=== PATIENT | female | born 1950 | race Caucasian/White ===

== ENCOUNTER 2017-03-22 17:53 | Inpatient (IN) ==
[2017-03-22] MEDS ORDERED: *HR* Morphine 2 MG/ML SYRINGE IVP ONE (18:05)
[2017-03-22] MEDS ORDERED: Ondansetron 4 MG/2 ML VIAL IVP ONE (18:05)
[2017-03-22] MEDS ORDERED: Nitroglycerin 1,000 MCG/10 ML VIAL IV ONE (18:08)
[2017-03-22] MEDS ORDERED: *HR* FentaNYL (PF) 100 MCG/2 ML VIAL ONE (18:08)
[2017-03-22] MEDS ORDERED: *HR* Midazolam HCl 2 MG/2 ML VIAL ONE (18:08)
[2017-03-22 18:10] LABS: Basophils # 0.1 K/mcL (0.0-0.2); Basophils % 0.6 %; Eosinophils # 0.3 K/mcL (0.0-0.6); Eosinophils % 2.8 %; Hematocrit 44.7 % (35.3-44.9); Hemoglobin 14.6 g/dL (11.5-15.4); Immature Granulocytes % 0.4 % (0-4); Lymphocytes # 3.7 K/mcL (0.6-4.6); Lymphocytes % 32.2 %; Mean Corpuscular HGB Conc 32.7 g/dL (31.6-35.5); Mean Platelet Volume 10.8 fL (9.4-12.4); Monocytes # 0.6 K/mcL (0.0-1.3); Monocytes % 5.5 %; Neutrophils # 6.8 K/mcL (1.6-8.9); Platelet Count 210 K/mcL (140-400); Red Blood Count 4.86 M/mcL (3.82-4.97); Red Cell Distribution Width 14.6 % (11.5-14.5); Segmented Neutrophils % 58.5 %
[2017-03-22 18:12] LABS: Prothrombin Time 10.8 Seconds (9.4-12.1)
[2017-03-22 18:14] LABS: Activated Partial Thrombo Time 29.2 Seconds (26.0-36.0)
[2017-03-22 18:20] LABS: BUN/Creatinine Ratio 17 (6-26); Blood Urea Nitrogen 15 mg/dL (7-20); Calcium 9.2 mg/dL (8.6-10.8); Carbon Dioxide 21 mEq/L (19-29); Chloride 103 mEq/L (98-109); Glucose 110 mg/dL (70-99); Magnesium 1.6 mg/dL (1.6-2.6); Osmolality,Calculated 281 (280-300); Potassium 3.8 mEq/L (3.5-4.5); Sodium 135 mEq/L (136-145); eGFR For African Americans > 60 (> 60); eGFR For Non-African Americans > 60 (> 60)
--- NOTE | 2017-03-22 18:23 | Emergency Department Note ---
Disposition Clinical Impression: STEMI (ST elevation myocardial infarction) Qualifiers: Involved coronary artery: unspecified coronary artery Qualified Code(s): I21.3 - ST elevation (STEMI) myocardial infarction of unspecified site Disposition: Admitted As Inpatient Condition: Critical Time of Disposition: 18:34 General Adult HPI - General Chief complaint: ED Chest Pain Stated complaint: STEMI Time Seen by Provider: 03/22/17 17:55 Source: patient, EMS Limitations: no limitations Nursing Notes Reviewed: Yes Vital Signs Reviewed: Yes - History of Present Illness HPI Narrative: Patient is a 58-year-old female with a past medical history of COPD, [place], CABG with 3 stent placement transferred to ED emergency Department by squad for inferior [place] seen by EKG he is squad. In route the Tapper Operator was activated and was consult as an EKG was faxed to him at that time. Upon patient' s arrival she did appear to be in moderate distress. Patient states that her chest pain started yesterday however she has been having back pain for the past 3 days. She describes the chest pain as a pressure-like pain associated with diaphoresis, non-exertional, positive shortness of breath, and no nausea. Patient's Pain is 10/10. Pain Scale: 10 - Related Data Home Medications Medication Instructions Recorded Confirmed Albuterol Neb [AccuNeb] 1.25 mg IH TID 05/07/15 05/07/15 Atorvastatin [Lipitor] 40 mg PO DAILY 05/07/15 05/07/15 Metoprolol 05/07/15 Previous Rx's Medication Instructions Recorded Albuterol Sulfate [Proair HFA] 2 puff IH Q4HR 2 Days hfa.aer.ad 05/07/15 Amoxicillin 875 mg PO BID #20 tablet 05/07/15 Benzonatate [Tessalon] 200 mg PO TID PRN #20 capsule 05/07/15 MethylPREDNISolone [Medrol] 4 mg PO DAILY #21 tablet 05/07/15 Allergies Allergy/AdvReac Type Severity Reaction Status Date / Time codeine Allergy See Verified 05/07/15 12:38 Comments levofloxacin [From Levaquin] Allergy See Verified 03/22/17 18:25 Comments morphine Allergy See Verified 05/07/15 12:38 Comments Review of Systems: Constitutional: No fever Vision: No blurred vision ENT: No rhinorrhea Respiratory: No cough, positive shortness of breath CV: Positive for CP Allergic: No allergies GI: No blood in stool, positive for nausea, no vomiting Hematologic: No bruising Dermatologic: No skin rash Musculoskeletal: No pain in the extremities, no lower extremity swelling, positive for back pain Neuro: No numbness of the extremities All systems ED: reviewed and negative except as stated. Past Medical History - Past Medical History Medical history: Reports: COPD, myocardial infarction - Social History Smoking Status: Current every day smoker Smokeless Tobacco Status: No Alcohol use: Reports: none Drug use: Reports: none Physical Exam CONSTITUTIONAL: Alert and oriented X3, patient appears to be in moderate distress. HEAD: Normocephalic; atraumatic. EYES: PERRL, no scleral icterus. NOSE: The nose is normal in appearance without rhinorrhea RESP: Normal chest excursion with respiration; breath sounds clear and equal bilaterally; no wheezes, rhonchi, or rales CARD: Patient has STEMI in inferior leads. Heart is without murmurs, rub or gallop ABD: Non-distended; non-tender, soft,without rigidity, rebound or guarding SKIN: Normal for age and race; warm and dry; no apparent lesions EXT: No lower extremity edema or tenderness with palpation. Good pulses in all extremities. - General Limitations: no limitations General appearance: alert, in no apparent distress Course Course Narrative: Patient is a 66-year-old female received a call from a physician Dr. Bueno from [facility] by the patient in route by [facility] with a inferior STEMI seen by EKG by [facility]. We initiated the process to activate catheter lab. The patient arrived and she received an initial workup we gave her Zofran and morphine for her pain. Her EKG here showed an inferior STEMI with reciprocal changes in the leads V2. The patient was transferred to catheter lab for her lab work was done before chest x-ray was done. Patient's heart rate was in the 60s and her blood pressure was in the 160s over 90s. Nausea patient has a morphine allergy and discussed with the patient will route he was she says it makes her heart feels funny however should less and she is given morphine was after her last [place] she had. I discussed with her that we like to give her morphine for her pain and that she is in the hospital we can monitor any side effects. She agrees with this. I also gave her Zofran as well. Patient was then transferred to the Tapper Operator. Vital Signs Temperature 97.1 F L 03/22/17 17:56 Pulse Rate 64 03/22/17 17:56 Respiratory Rate 18 03/22/17 17:56 Blood Pressure 159/95 03/22/17 17:56 O2 Sat by Pulse Oximetry 98 03/22/17 17:56 Temperature 97.1 F L 03/22/17 17:56 Pulse Rate 68 03/22/17 18:10 Respiratory Rate 18 03/22/17 18:10 Blood Pressure 159/95 03/22/17 18:10 O2 Sat by Pulse Oximetry 98 03/22/17 18:10 Oxygen Delivery Oxygen Delivery Nasal Cannula Medical Decision Making - Medical Records Medical records reviewed: Yes I reviewed the patient's medical records. - Lab Data Lab results reviewed: Yes I reviewed the patient's lab results. Result diagrams: 03/22/17 18:00 03/22/17 18:00 Lab Results 03/22/17 03/22/17 03/22/17 Range/Units 18:00 18:00 18:00 WBC 11.6 H (4.3-11.1) K/mcL RBC 4.86 (3.82-4.97) M/mcL Hgb 14.6 (11.5-15.4) g/dL Hct 44.7 (35.3-44.9) % MCV 92.0 (83.0-100.0) fL MCH 30.0 (28.0-33.3) pg MCHC 32.7 (31.6-35.5) g/dL RDW 14.6 H (11.5-14.5) % Plt Count 210 (140-400) K/mcL MPV 10.8 (9.4-12.4) fL Immature Gran % 0.4 (0-4) % Seg Neutrophils % 58.5 % Lymphocytes % 32.2 % Monocytes % 5.5 % Eosinophils % 2.8 % Basophils % 0.6 % Neutrophils # 6.8 (1.6-8.9) K/mcL Lymphocytes # 3.7 (0.6-4.6) K/mcL Monocytes # 0.6 (0.0-1.3) K/mcL Eosinophils # 0.3 (0.0-0.6) K/mcL Basophils # 0.1 (0.0-0.2) K/mcL PT 10.8 (9.4-12.1) Seconds INR 1.0 APTT 29.2 (26.0-36.0) Seconds Sodium 135 L (136-145) mEq/L Potassium 3.8 (3.5-4.5) mEq/L Chloride 103 (98-109) mEq/L Carbon Dioxide 21 (19-29) mEq/L BUN 15 (7-20) mg/dL Creatinine 0.87 (0.57-1.11) mg/dL Est GFR ( Amer) > 60 (> 60) Est GFR (Non-Af Amer) > 60 (> 60) BUN/Creatinine Ratio 17 (6-26) Glucose 110 H (70-99) mg/dL Calculated Osmolality 281 (280-300) Calcium 9.2 (8.6-10.8) mg/dL Magnesium 1.6 (1.6-2.6) mg/dL Troponin I (0-0.03) ng/mL 03/22/17 Range/Units 18:00 WBC (4.3-11.1) K/mcL RBC (3.82-4.97) M/mcL Hgb (11.5-15.4) g/dL Hct (35.3-44.9) % MCV (83.0-100.0) fL MCH (28.0-33.3) pg MCHC (31.6-35.5) g/dL RDW (11.5-14.5) % Plt Count (140-400) K/mcL MPV (9.4-12.4) fL Immature Gran % (0-4) % Seg Neutrophils % % Lymphocytes % % Monocytes % % Eosinophils % % Basophils % % Neutrophils # (1.6-8.9) K/mcL Lymphocytes # (0.6-4.6) K/mcL Monocytes # (0.0-1.3) K/mcL Eosinophils # (0.0-0.6) K/mcL Basophils # (0.0-0.2) K/mcL PT (9.4-12.1) Seconds INR APTT (26.0-36.0) Seconds Sodium (136-145) mEq/L Potassium (3.5-4.5) mEq/L Chloride (98-109) mEq/L Carbon Dioxide (19-29) mEq/L BUN (7-20) mg/dL Creatinine (0.57-1.11) mg/dL Est GFR ( Amer) (> 60) Est GFR (Non-Af Amer) (> 60) BUN/Creatinine Ratio (6-26) Glucose (70-99) mg/dL Calculated Osmolality (280-300) Calcium (8.6-10.8) mg/dL Magnesium (1.6-2.6) mg/dL Troponin I 0.22 H* (0-0.03) ng/mL - EKG Data EKG #1 EKG attestation: Yes I reviewed and interpreted this EKG. EKG results narrative: Patient's EKG is sinus rhythm at a rate of 65 bpm. OK interval 164, QRS is 110, QT is 449 and QTc is 460. These are within normal limits. Patient's EKG is significant for an inferior myocardial infarction. She has ST elevations in leads II, III, and aVF and she has reciprocal changes in the precordial leads in V2 and also slight ST elevation in V6. Critical Care Time Critical Care Time: Yes Total Critical Care Time: 20 Attestation: Regular care time for this patient was 20 minutes. Attestation Statement - Attestation Attestation: Patient was seen with resident physician. I reviewed the history, physical, assessment and plan, and agree with the findings. I also personally evaluated this patient and had [id number] time with this patient. 66-year-old female presents to emergency department with a STEMI. EMS had faxed in an EKG which was diagnostic in nature. We contacted flight engineer and started the STEMI activation. The STEMI team was on the way prior to patient's arrival to emergency department. Upon arrival patient states she had chest pain and back pain. She said her back pain started approximately 2 days ago her chest pain which is described as a pressure sensation middle of her chest about a day or so ago. Patient has had a triple bypass in the past. She denies shortness of breath fevers chills nausea or diaphoresis. On exam vital signs were stable here in the emergency department, when EMS picked her up she was hypotensive. She was receiving fluids and did have [address] ENT was unremarkable. Heart regular rhythm and rate. Lungs clear. Abdomen soft and nontender. Extremities unremarkable. Neurologically intact. ED course patient was in the emergency department for brief 20 minutes. During that time fluid resuscitation was continued. We had discussed with the computer systems administrator use of medications and he did not want any delays from getting to the emergency department to the catheter lab so none were begun. Patient did receive aspirin while in route via EMS. Repeat EKG done in the emergency department revealed an inferior wall [place]. Patient was kept on the monitor to ensure that she was stable while here. We did not administer nitroglycerin because is was an inferior wall and the patient had been found hypotensive on EMS arrival. Patient was taken to the Tapper Operator for definitive management of her acute [place]. Critical care time was 20 minutes. I agree with the resident physician assessment and plan.
[2017-03-22] MEDS ORDERED: Tirofiban 5 MG/100ML 5 MG/100 ML BAG IV ONE (19:10)
[2017-03-22] MEDS ORDERED: *HR* Ticagrelor 90 MG TABLET ONE (19:52)
--- NOTE | 2017-03-22 20:06 | Cardiology Consult Note ---
Date of Encounter: 03/22/17 Time of Encounter: 18:00 Assessment and Plan Discussion w patient/family: The assessment and plan as outlined above was discussed with the patient and/or family members who expressed understanding and agreement. All questions were answered. Thank you for involving us in the care of your patient. Please call with any questions. Emergent cath. History of Present Illness Consult date: 03/22/17 Consult reason: STEMI Chief complaint: chest pain History of present illness: Ms. Thornton is a 66 year old female transferred from outside ED with nausea nad chest pain for the past 24 hours and worse tonight, Seen in the ED with inferior wall STEMI. Had three vessel CABG in 2014 at [facility]. Apparently well for past year until yesterday. Not on any anticoagulation or antiplatemet. Past Med Surg Social Fam HX - Past Medical History Medical history: COPD, myocardial infarction - Social History Smoking Status: Current every day smoker Smokeless Tobacco Status: No Alcohol use: none Drug use: none Medications and Allergies Albuterol Neb [AccuNeb] 1.25 mg IH TID 05/07/15 [History] Albuterol Sulfate [Proair HFA] 2 puff IH Q4HR 2 Days hfa.aer.ad 05/07/15 [Rx] Amoxicillin 875 mg PO BID #20 tablet 05/07/15 [Rx] Atorvastatin [Lipitor] 40 mg PO DAILY 05/07/15 [History] Benzonatate [Tessalon] 200 mg PO TID PRN #20 capsule 05/07/15 [Rx] MethylPREDNISolone [Medrol] 4 mg PO DAILY #21 tablet 05/07/15 [Rx] Metoprolol 05/07/15 [History] 3 Allergy/AdvReac Type Severity Reaction Status Date / Time codeine Allergy See Verified 05/07/15 12:38 Comments levofloxacin [From Levaquin] Allergy See Verified 03/22/17 18:25 Comments morphine Allergy See Verified 05/07/15 12:38 Comments All Systems Review: A 10-system review of systems was performed and is negative for pertinent findings except as documented above in the HPI. All stable - Cardiovascular Cardiovascular: as per HPI - Respiratory Respiratory: cough, dyspnea Physical Examination General: Conversant HEENT: Atraumatic Neck: No JVD Cardiac: Reg Rate and Rhythm, Normal S1 and S2, No Murmur Lungs: Normal Breath Sounds, No Wheeze, Rales, Rhonchi Neuro: Alert and responsive Abdomen: Soft Musculoskeletal: No Chest Wall Tenderness Extremities: No Clubbing, No Cyanosis Results 03/22/17 18:00 03/22/17 18:00 - EKG Interpretation EKG results cardiology: personally reviewed (Inferior wqall STEMI) Consult Discharge Plan - Plan Referrals: Rogelio Maharaj MD [Primary Care Provider] -
--- NOTE | 2017-03-22 20:10 | Pre-Sedation Evaluation ---
Pre-sedation evaluation - Pre-sedation checklist Date of procedure: 03/22/17 Procedure: emergent Left cath Recent Vitals: Last Vital Signs Temp 97.1 F L 03/22/17 17:56 Pulse 68 03/22/17 18:10 Resp 18 03/22/17 18:10 BP 159/95 03/22/17 18:10 Pulse Ox 98 03/22/17 18:10 H&P (including ROS) documented in medical record: Yes Previous reaction to sedatives/anesthetics: No Dietary Status: NPO 6 hours prior to procedure Airway Assessment: Patient can open mouth completely, TMJ function normal Possible difficult airway: No ASA Classification *see protocol: CLASS IV-Severe systemic disease/constant threat to pt's life
--- NOTE | 2017-03-22 20:16 | Procedure Note ---
Date of procedure: 03/22/17 Pre-op diagnosis: STEMI Post-op diagnosis: same Anesthesia: local Surgeon: Kermit Lindsay Estimated blood loss (cc): 20 Pathology: none sent Condition: stable Disposition: ICU
[2017-03-22] MEDS ORDERED: Aspirin 81 MG TAB.CHEW ONE (20:21)
[2017-03-22] MEDS ORDERED: Tirofiban 0.05 MG/1 ML (BOLUS FROM BAG) IV ONE (20:24)
--- NOTE | 2017-03-22 20:33 | Invasive Diagnostic Lab Proc ---
Name: Jacqueline Thornton Date of Study: 03/22/2017 Date: 1950 Ht: 59.1in Medical Record#: [id number] Age: 66 Wt: 114.64lb Gender: Female BSA: 1.46 Order #: [id number] BMI: 23.11 Physicians Procedure Physician: Kermit Lindsay MD Referring MD: Referring MD: Staff Name Position Time In Renee Meyer RT (R) Scrub 08:01 PM Diana Gary RN Cattle Farmer 08:01 PM Aisha Lam RN Monitor 08:01 PM Indications Indication STEMI Procedures Performed Procedure PRQ CARD REVASC AK 1 VSL L HRT ART/GRFT ANGIO PRQ CARD STENT/ATH/ANGIO 1st VSL Pre-Procedure Checklist Informed consent is complete signed and on chart. H&P is on chart. ID band is on and ID verified with patient. Patient NPO for procedure The procedure was described for the patient and questions were answered. Blood Pressure: 151/90 ECG is on chart. Rhythm: NSR Plan of Care Patient will tolerate the procedure without complications. Adequate level of comfort will be maintained. Hemodynamics will remain stable Patient will recover from procedure without complications. Respiratory function will be maintained. Cardiac rhythm will remain stable. Patient temperature will be maintained. Patient and/or family have verbalized understanding of the procedure. Patient Education Chief Complaint/Reason for Test: Cardiac Cath Developmental Category: Geriatric (65+ years) Developmentally Appropriate for Age: Yes Learning Barriers: None Education Needs: Procedure Information Taught: Cardiac Cath Educational Evaluation: Able to repeat information Intravenous Access Time IV Size Location DC'd Fluid/Drip Rate Units RN 06:16 PM 18g 1 1/4" Patent On Arrival Lt Antecubital 0.9NaCl 06:16 PM 18g 1 1/4" Patent On Arrival Rt Antecubital Allergies codeine Vital Signs Time BP (mmHg) HR (bpm) O2 Sat. RR (bpm) LOC 06:23 PM 151 / 90 81 96 % 18 5 = Fully awake and oriented or at pre-proc level 06:28 PM 133 / 83 74 90 % 21 5 = Fully awake and oriented or at pre-proc level 06:33 PM 131 / 81 74 95 % 20 5 = Fully awake and oriented or at pre-proc level 06:38 PM 128 / 75 77 97 % 19 5 = Fully awake and oriented or at pre-proc level 06:43 PM 129 / 74 75 97 % 20 5 = Fully awake and oriented or at pre-proc level 06:48 PM 129 / 77 72 98 % 22 5 = Fully awake and oriented or at pre-proc level 06:53 PM 132 / 77 71 98 % 17 5 = Fully awake and oriented or at pre-proc level 06:58 PM 136 / 84 75 99 % 17 5 = Fully awake and oriented or at pre-proc level 07:03 PM 132 / 75 76 96 % 13 5 = Fully awake and oriented or at pre-proc level 07:08 PM 135 / 77 77 96 % 17 5 = Fully awake and oriented or at pre-proc level 07:13 PM 148 / 93 77 97 % 16 5 = Fully awake and oriented or at pre-proc level 07:19 PM 98 / 59 51 96 % 17 5 = Fully awake and oriented or at pre-proc level 07:20 PM 106 / 70 67 96 % 17 5 = Fully awake and oriented or at pre-proc level 07:24 PM 115 / 73 72 96 % 16 5 = Fully awake and oriented or at pre-proc level 07:28 PM 126 / 73 71 95 % 19 5 = Fully awake and oriented or at pre-proc level 07:33 PM 136 / 80 76 96 % 16 5 = Fully awake and oriented or at pre-proc level 07:38 PM 142 / 82 76 98 % 20 5 = Fully awake and oriented or at pre-proc level 07:43 PM 146 / 88 76 97 % 18 5 = Fully awake and oriented or at pre-proc level 07:48 PM 142 / 89 75 95 % 19 5 = Fully awake and oriented or at pre-proc level 07:54 PM 143 / 49 76 96 % 23 5 = Fully awake and oriented or at pre-proc level 07:59 PM 118 / 34 80 96 % 18 5 = Fully awake and oriented or at pre-proc level 08:04 PM 103 / 75 216 % 21 5 = Fully awake and oriented or at pre-proc level Procedural Medications Time Medication Dose Units Method Given By 06:16 PM Oxygen 2 L/min nasal cannula Diana Gary RN 06:24 PM Versed 1 mg Intravenous Diana Gary RN 06:24 PM Fentanyl 50 mcg Intravenous Diana Gary RN 06:23 PM Lidocaine 2% 20 ml Subcutaneous Kermit Lindsay MD 06:29 PM Oxygen 4 L/min nasal cannula Diana Gary RN 06:29 PM Oxygen 6 L/min nasal cannula Diana Gary RN 06:31 PM Oxygen 6 L/min Oxy Mask Diana Gary RN 06:51 PM Heparin 5000 units Intravenous Diana Gary RN 06:56 PM Versed 1 mg Intravenous Diana Gary RN 06:56 PM Fentanyl 50 mcg Intravenous Diana Gary RN 07:11 PM Aggrastat Bolus: 25 ml Intravenous Diana Gary RN 07:12 PM Aggrastat 5mg/100ml 9 ml Intravenous Diana Gary RN 07:58 PM Brilinta 180 mg Orally Diana Gary RN ASA Classification: Emergent Procedure: ASA score is assumed Rosita Score Preprocedure Postprocedure Activity 2- Moves 4 extremities sustained head lift Activity 2- Moves 4 extremities sustained head lift Circulation 2- SBP +/= 20 points of pre-anesthetic level Circulation 2- SBP +/= 20 points of pre-anesthetic level Consciousness 2- Awake and alert oriented x 3 Consciousness 2- Awake and alert oriented x 3 O2 Saturation 2- Able to maintain O2 satruation of 92% on room air O2 Saturation 2- Able to maintain O2 satruation of 92% on room air Respiratory 2- Able to deep breathe and cough well Respiratory 2- Able to deep breathe and cough well Total Score 10 Total Score 10 Contrast Agent: Isovue Diagnostic Contrast: 219 ml Total Contrast: 219 ml Fluoro Dose: 1627 mGy Activated Clotting Time Time Seconds to Clot 07:53 PM 330 Procedure Log Time Note Enter By 06:16 PM Diana Gary RN Position: Cattle Farmer Time in: ejohnson 06:16 PM Renee Meyer RT (R) Position: Scrub Time in: 18:16 ejohnson 06:16 PM Time out performed according to hospital policy ejohnson 06:16 PM Aisha Lam RN Position: Monitor Time in: 18:16 ejohnson 06:16 PM Pt arrived to clinical laboratory medical director 1 at 18:16 ejohnson 06:16 PM Ilia and greet completed ejohnson 06:16 PM Sign in performed according to hospital policy. ejohnson 06:16 PM Procedure start 18:16 ejohnson 06:16 PM Time: 18:16 Oxygen on at 2 L/min per nasal cannula by Diana Gary RN ejohnsalma 06:23 PM Vitals capture started with the following parameters, Patient=Adult, Interval=5 min, Initial Nvgmiqrj=058 mmHg, Deflation Rate=5 mmHg, Cuff placed on Right Arm 06:23 PM CathStat 06: PM Time: 18:23 20 ml Lidocaine 2% to right groin Subcutaneous Given by Kermit Lindsay MD ejohnson 06:23 PM Recorded ECG: HR=84 Condition=Condition 1 06:23 PM HR=81 bpm, BVYD=057/90 mmhg, SpO2=96.0 %, Resp=18 B/min, Comment=SR 06:24 PM Time: 18:24 Versed 1 mg Intravenous Given by Diana Gary RN ejohnsalma 06:25 PM Time: 18:24 Fentanyl 50 mcg Intravenous Given by Diana Gary RN ejohnsalma 06:27 PM Access obtained by percutaneous puncture. 6Fr 10cm [place] sheath placed in right Femoral artery. [id number] ejohnson 06:27 PM 0.035 145cm Glidewire wire [id number], unable to advance wire ejohnson 06:28 PM Pressure channel 1 zeroed. 06:28 PM HR=74 bpm, YHCQ=721/83 mmhg, SpO2=90.0 %, Resp=21 B/min, Comment=SR 06:29 PM Time: 18:29 Oxygen on at 4 L/min per nasal cannula by Diana Gary RN ejohnson 06:29 PM wire advanced, glide ejohnson 06:29 PM 5Fr FL 4 catheter inserted over the wire DNC ejohnson 06:30 PM Time: 18:29 Oxygen on at 6 L/min per nasal cannula by Diana Gary RN ejohnson 06:30 PM glidewire removed ejohnson 06:30 PM Recorded Pressure: Ao, HR=73, Condition=Condition 1 (Aorta) Ao 140/82/106 06:31 PM Recorded Pressure: Ao, HR=74, Condition=Condition 1 (Aorta) Ao 132/91/110 06:31 PM LCA angiography performed in multiple views. ejohnson 06:32 PM Time: 18:31 Oxygen on at 6 L/min per Oxy Mask by Diana Gary RN ejohnson 06:32 PM Catheter removed ejohnson 06:32 PM 5Fr FR 4 catheter inserted over the wire DNC then J wire removed ejohnson 06:33 PM glide wire inserted ejohnson 06:33 PM HR=74 bpm, GYUM=908/81 mmhg, SpO2=95.0 %, Resp=20 B/min, Comment=SR 06:34 PM Recorded Pressure: Ao, HR=73, Condition=Condition 1 (Aorta) Ao 134/91/112 06:38 PM HR=77 bpm, HSKT=221/75 mmhg, SpO2=97.0 %, Resp=19 B/min, Comment=SR 06:42 PM glide wire removed and J wire reinserted ejohnson 06:43 PM HR=75 bpm, SJJU=057/74 mmhg, SpO2=97.0 %, Resp=20 B/min, Comment=SR 06:48 PM HR=72 bpm, POXP=636/77 mmhg, SpO2=98.0 %, Resp=22 B/min, Comment=SR 06:50 PM Catheter removed ejohnson 06:51 PM 6Fr JR 4 Runway guide catheter was used to cannulate the PCI vessel successfully. reused? No ejohnson 06:51 PM Inflation device was opened. ejohnson 06:51 PM .014 PT [employer]ix 145cm guide wire across target lesion- successful. reused? No ejohnson 06:51 PM Time: 18:51 Heparin 5000 units Intravenous Given by Diana Gary RN ejohnson 06:53 PM HR=71 bpm, QBJZ=379/77 mmhg, SpO2=98.0 %, Resp=17 B/min, Comment=SR 06:54 PM had trouble finding the bypass graphs ejohnson 06:56 PM Time: 18:56 Versed 1 mg Intravenous Given by Diana Gary RN ejohnson 06:56 PM Time: 18:56 Fentanyl 50 mcg Intravenous Given by Diana Gary RN ejohnson 06:58 PM HR=75 bpm, OVWI=795/84 mmhg, SpO2=99.0 %, Resp=17 B/min, Comment=SR 07:03 PM Guide wire removed intact. ejohnson 07:03 PM Guide catheter removed intact. ejohnson 07:03 PM 6Fr AR1 Runway guide catheter was used to cannulate the PCI vessel successfully. reused? No ejohnson 07:03 PM HR=76 bpm, KNKC=358/75 mmhg, SpO2=96.0 %, Resp=13 B/min, Comment=SR 07:07 PM .014 [employer] [place] 190cm guide wire across target lesion- successful. reused? No ejohnson 07:08 PM HR=77 bpm, CZWV=585/77 mmhg, SpO2=96.0 %, Resp=17 B/min, Comment=SR 07:09 PM 2.5 mm x 12 mm Emerge [employer] balloon across target lesion- successful. reused? No ejohnson 07:10 PM Balloon inflated @ 10 melissa for 13 seconds ejohnson 07:10 PM Balloon inflated @ 10 melissa for 8 seconds ejohnson 07:10 PM Balloon inflated @ 10 melissa for 14 seconds ejohnson 07:11 PM Balloon inflated @ 10 melissa for 14 seconds ejohnson 07:12 PM Time: 19:11 Aggrastat Bolus: 25 ml Intravenous Given by Diana Gary RN Hunt pump ejohnson 07:12 PM Balloon inflated @ 10 melissa for 10 seconds ejohnson 07:12 PM Balloon inflated @ 10 melissa for 9 seconds ejohnson 07:13 PM Time: 19:12 Aggrastat 5mg/100ml 9 ml Intravenous Given by Diana Gary RN Hunt pump ejohnson 07:13 PM Balloon inflated @ 10 melissa for 12 seconds ejohnson 07:13 PM Balloon inflated @ 10 melissa for 6 seconds ejohnson 07:13 PM HR=77 bpm, KFBC=246/93 mmhg, SpO2=97.0 %, Resp=16 B/min, Comment=SR 07:13 PM Balloon inflated @ 10 melissa for 7 seconds ejohnson 07:13 PM Balloon inflated @ 10 melissa for 4 seconds ejohnson 07:15 PM Balloon catheter removed intact. ejohnson 07:18 PM Pronto V4 thrombectomy pass # 1 for 15 ml total fluid, no clots ejohnson 07:19 PM HR=51 bpm, NIBP=98/59 mmhg, SpO2=96.0 %, Resp=17 B/min, Comment=SR 07:20 PM Recorded Pressure: Ao, HR=56, Condition=Condition 1 (Aorta) Ao 420/386/405 07:20 PM NIBP STAT measurement started. 07:20 PM Recorded ECG: HR=68 Condition=Condition 1 07:20 PM HR=67 bpm, VHTT=358/70 mmhg, SpO2=96.0 %, Resp=17 B/min, Comment=SR 07:22 PM Pronto thrombectomy pass # 15 for ml total fluid, no clots ejohnson 07:23 PM Pronto thrombectomy pass # 3 for 10 ml total fluid. ejohnson 07:23 PM Pronto removed ejohnson 07:24 PM HR=72 bpm, KQLJ=328/73 mmhg, SpO2=96.0 %, Resp=16 B/min, Comment=SR 07:24 PM wire was removed by accident ejohnson 07:25 PM wire reinserted ejohnson 07:25 PM Recorded Pressure: Ao, HR=76, Condition=Condition 1 (Aorta) Ao 132/83/105 07:26 PM 2.5 mm x 12 mm Emerge Mon[employer] balloon across target lesion- successful. reused? Yes ejohnson 07:28 PM HR=71 bpm, AEWB=961/73 mmhg, SpO2=95.0 %, Resp=19 B/min 07:31 PM repostioning guide, kicked out of place ejohnson 07:33 PM HR=76 bpm, GJVE=395/80 mmhg, SpO2=96.0 %, Resp=16 B/min, Comment=SR 07:34 PM Balloon inflated @ 16 melissa for 20 seconds ejohnson 07:34 PM Balloon inflated @ 16 melissa for 30 seconds ejohnson 07:35 PM Balloon inflated @ 16 melissa for 30 seconds ejohnson 07:35 PM Balloon inflated @ 16 melissa for 30 seconds ejohnson 07:36 PM Balloon inflated @ 16 melissa for 30 seconds ejohnson 07:37 PM Balloon inflated @ 16 melissa for 30 seconds ejohnson 07:38 PM HR=76 bpm, ZEVX=020/82 mmhg, SpO2=98.0 %, Resp=20 B/min, Comment=SR 07:39 PM Balloon catheter removed intact. ejohnson 07:41 PM 3.0mm x 24mm Rebel [employer] bare metal stent across target lesion- successful Lot #[id number] ejohnson 07:42 PM Stent deployed @ 16 melissa for 30 seconds ejohnson 07:43 PM Stent delivery system removed intact. ejohnson 07:43 PM HR=76 bpm, WDVT=796/88 mmhg, SpO2=97.0 %, Resp=18 B/min, Comment=SR 07:45 PM 3.5mm x 32mm Rebel [employer] bare metal stent across target lesion- successful Lot #[id number] ejohnson 07:46 PM Stent deployed @ 12 melissa for 33 seconds ejohnson 07:47 PM Stent delivery system removed intact. ejohnson 07:48 PM 3.5mm x 24mm Rebel [employer] bare metal stent across target lesion- successful Lot #[id number] ejohnson 07:48 PM HR=75 bpm, MXWS=112/89 mmhg, SpO2=95.0 %, Resp=19 B/min, Comment=SR 07:51 PM Balloon inflated @ 15 melissa for 30 seconds ejohnson 07:52 PM Stent delivery system removed intact. ejohnson 07:52 PM Guide wire removed intact. ejohnson 07:52 PM Guide catheter removed intact. ejohnson 07:53 PM 5Fr Pigtail catheter inserted over the wire [facility] ejohnson 07:53 PM Catheter selectively placed in left ventricle ejohnson 07:53 PM At 19:53 the ACT was 330 seconds. ejohnson 07:53 PM Recorded Pressure: LV, HR=76, Condition=Condition 1 (Left Ventricle) LV 158/12/23 07:54 PM Bolus angiogram of left Ventricle complete: 10 ml/sec for a total of 30 mls ejohnson 07:54 PM HR=76 bpm, FHKF=226/49 mmhg, SpO2=96.0 %, Resp=23 B/min, Comment=SR 07:55 PM Recorded Pressure: LV, Ao, HR=79, Condition=Condition 1 (Left Ventricle) LV 160/16/32, (Aorta) Ao 166/97/127 07:55 PM Catheter removed ejohnson 07:56 PM Bolus angiogram of right Descending aorta complete: 2 ml/sec for a total of 4 mls ejohnson 07:58 PM Procedure completed at 19:58 ejohnson 07:58 PM Sign out completed: Radiation Dose 1626.62 mGy Fluoro Time: 38.2 Isovue 370 - 200ml contrast 219 ml given by Kermit Lindsay MD. Complications: NoneCardiac Rehab Consult needed: YesConfirmed administered medications: Yes ejohnson 07:59 PM HR=80 bpm, XBOU=137/34 mmhg, SpO2=96.0 %, Resp=18 B/min, Comment=SR 07:59 PM Time: 19:58 Brilinta 180 mg Orally Given by Diana Gary RN ejohnson 08:04 PM GW=873 bpm, GHQI=868/75 mmhg, Resp=21 B/min, Comment=SR 08:06 PM Sheath left in place to be pulled on floor/holding area ejohnson 08:06 PM Isovue 370 - 200ml,1 Bottle(s) used. ejohnson 08:06 PM Post ECG NSR ejohnson 08:06 PM Post Blood Pressure 103/75 ejohnson 08:06 PM 20:06 Post Pulses Bilateral DP & PT 1+ ejohnson 08:06 PM Information taught PCI ejohnson 08:06 PM Education needs Plan of Care and Responsibilities of Patient in Care ejohnson 08:06 PM Learning barriers :None ejohnson 08:06 PM Education Methods Verbal ejohnson 08:06 PM Education evaluation Able to repeat information ejohnson 08:07 PM Site status No bleeding/hematoma - Rt Groin as reported by Renee Meyer RT (R) at 20:06 ejohnson 08:07 PM Opsite applied ejohnson 08:07 PM Report given to Payton ALICEA Pt taken to ICU Room #6. 20:07 ejohnson 08:07 PM Plavix, Effient or Brilinta given Yes ejohnson 08:07 PM Delay to floor No ejohnson 08:07 PM Patient out of room: 20:07 ejohnson 08:07 PM Family placed in consult room. ejohnson 08:07 PM Complications: None ejohnson 08:08 PM Coronary Dominance: right ejohnson 08:08 PM Lesion found in Proximal RCA. Pre Stenosis: 100 ejohnson 08:09 PM Lesion found in Mid LAD. Pre Stenosis: 100 ejohnson 08:09 PM Lesion found in Proximal Circumflex. Pre Stenosis: 100 ejohnson 08:09 PM Lesion found in Ramus. Pre Stenosis: 100 ejohnson 08:09 PM Mid/Distal Left Anterior Descending Coronary Artery and diagonal branches with 100% stenosis. ejohnson 08:10 PM Circumflex, Obtuse Marginal, Left Posterior Descending, and Left Posterolateral Coronary Arteries with 100 % stenosis. ejohnson 08:10 PM Right Coronary, Right Posterior Descending Arteries with Right Posterolateral and Acute Marginal branches with 100 % stenosis. ejohnson 08:10 PM Ramus with 100% stenosis. ejohnson Complications Complication None Hemodynamics Pressures Site Systolic/A Wave Diastolic/V Wave Mean AO 140 82 106 AO 132 91 110 AO 134 91 112 AO 420 386 405 AO 132 83 105 LV 158 12 23 LV 160 16 32 AO 166 97 127 Post Procedure Information Blood Pressure: 103/75 mmHg Rhythm: NSR Post procedural instructions were given Site Checks Time Location Status Staff Sheath In? Note 08:06 PM Rt Groin No bleeding/hematoma Renee Meyer RT (R) Pulses Time Site Pre-Procedure Post-Procedure Note 03/22/2017 6:16:00 PM Bilateral DP & PT 1+ 03/22/2017 8:00:00 PM Bilateral DP & PT 1+ 8:06:00 PM Bilateral DP & PT 1+ Updated by Aisah Lam RN on 03/22/2017 8:25:38 PM Aisha Lam RN electronically signed on 03/22/2017 8:27:00 PM with status of Final
[2017-03-22] MEDS ORDERED: Nitroglycerin 0.4 MG TAB.SUBL SL PRN (22:00)
[2017-03-22] MEDS ORDERED: Nicotine 21 MG PATCH.TD24 TD SCH (22:15)
[2017-03-23] MEDS ORDERED: *HR* Atropine Sulfate 1 MG/10 ML SYRINGE ONE ×2 (00:20→07:38)
[2017-03-23] MEDS ORDERED: Tirofiban 5 MG/100ML 5 MG/100 ML BAG IV SCH (02:45)
[2017-03-23 03:44] LABS: Basophils % 0.3 %; Eosinophils # 0.1 K/mcL (0.0-0.6); Eosinophils % 0.4 %; Hematocrit 41.9 % (35.3-44.9); Hemoglobin 13.8 g/dL (11.5-15.4); Immature Granulocytes % 0.6 % (0-4); Lymphocytes # 1.3 K/mcL (0.6-4.6); Lymphocytes % 8.4 %; Mean Corpuscular HGB Conc 32.9 g/dL (31.6-35.5); Mean Corpuscular Hemoglobin 30.1 pg (28.0-33.3); Mean Corpuscular Volume 91.5 fL (83.0-100.0); Mean Platelet Volume 11.3 fL (9.4-12.4); Monocytes # 0.8 K/mcL (0.0-1.3); Monocytes % 4.9 %; Neutrophils # 13.5 K/mcL (1.6-8.9); Platelet Count 184 K/mcL (140-400); Red Blood Count 4.58 M/mcL (3.82-4.97); Red Cell Distribution Width 14.6 % (11.5-14.5); Segmented Neutrophils % 85.4 %
[2017-03-23 04:04] LABS: BUN/Creatinine Ratio 24 (6-26); Blood Urea Nitrogen 16 mg/dL (7-20); Carbon Dioxide 21 mEq/L (19-29); Chloride 103 mEq/L (98-109); Glucose 107 mg/dL (70-99); Osmolality,Calculated 278 (280-300); Sodium 133 mEq/L (136-145); eGFR For African Americans > 60 (> 60); eGFR For Non-African Americans > 60 (> 60)
[2017-03-23] MEDS ORDERED: *HR* Morphine 2 MG/ML SYRINGE IVP PRN ×3 (05:18→15:30)
[2017-03-23] MEDS ORDERED: Ondansetron 4 MG/2 ML VIAL IVP PRN ×2 (05:19→15:30)
[2017-03-23] MEDS ORDERED: *HR* Morphine 2 MG/ML SYRINGE IVP SCH (05:45)
[2017-03-23 06:14] LABS: Creatine Kinase 1661 Units/L (29-168)
[2017-03-23] MEDS ORDERED: *HR* Ticagrelor 90 MG TABLET PO SCH (09:00)
[2017-03-23] MEDS ORDERED: Aspirin 81 MG TAB.CHEW PO SCH (09:00)
--- NOTE | 2017-03-23 10:47 | Cardiology Progress Note ---
Date of Encounter: 03/23/17 Time of Encounter: 10:45 Assessment and Plan (1) STEMI (ST elevation myocardial infarction) Current Visit: Yes Status: Acute S/P STEMI and emergent LHC--severe 3 vessel CAD, EF 50%, successful thrombectomy /PTCA/BMS to SVG-distal RCA. S/P CABG 2/3 patent bypass grafts. Peak troponin 29.20. Right femoral access site healing well--no bleeding, hematoma or ecchymosis noted. Pt denies chest pain, but reports dyspnea, back pain and nausea. EKG this AM improved. ASA and Brilinta uninterrupted x 1 month minimum--pt verbalizes understanding. Continue BB, Statin, ACEi. Check echo to evaluate structure and function. Will likely step down later today. Qualifiers: Involved coronary artery: unspecified coronary artery Qualified Code(s): I21.3 - ST elevation (STEMI) myocardial infarction of unspecified site (2) CAD (coronary artery disease) Current Visit: Yes Status: Acute As above--ASA, Brilinta, Statin, BB, ACEi. Qualifiers: Coronary Disease-Associated Artery/Lesion type: unspecified vessel or lesion type [place] vs. transplanted heart: [place] heart Associated angina: angina presence unspecified Qualified Code(s): I25.10 - Atherosclerotic heart disease of [place] coronary artery without angina pectoris (3) Tobacco abuse Current Visit: Yes Status: Acute Smoking cessation counseling given. Nicotine patches while inpt. Discussion w patient/family: The assessment and plan as outlined above was discussed with the patient and/or family members who expressed understanding and agreement. All questions were answered. Thank you for involving us in the care of your patient. Please call with any questions. I will discuss all the above with Dr. Moser and make changes as necessary. Subjective Principal diagnosis: STEMI Interval history: S/P STEMI yesterday evening--emergent LHC revealed severe 3 vessel CAD. EF 50%, successful thrombectomy/PTCA/BMS to SVG-distal RCA. S/P CABG 2/3 patent bypass grafts. Pt denies chest pain, but admits to feeling like she has been "hit by a truck". She endorses dyspnea, improved since admission, and nausea. Also reports back pain. Peak troponin 29.20. Objective Vital Signs, Last 4 Hours Temp Pulse Resp BP Pulse Ox 03/23/17 10:26 55 12 126/69 98 03/23/17 09:00 63 16 126/76 98 03/23/17 08:00 60 16 115/81 93 03/23/17 07:57 97.8 F 03/23/17 07:15 58 18 121/71 97 Vital Signs Temp Pulse Pulse Resp BP Pulse Ox 03/23/17 10:26 55 12 126/69 98 03/23/17 09:00 63 16 126/76 98 03/23/17 08:00 60 16 115/81 93 03/23/17 07:57 97.8 F 03/23/17 07:15 58 18 121/71 97 03/23/17 06:15 56 56 16 129/73 96 03/23/17 05:45 57 57 20 127/73 95 03/23/17 04:45 97.4 F L 60 22 120/76 93 03/23/17 04:00 56 56 03/23/17 03:00 62 60 20 129/79 95 03/23/17 02:30 69 67 14 132/79 95 03/23/17 02:00 69 69 16 137/89 95 03/23/17 01:30 64 64 14 122/80 96 03/23/17 01:15 67 61 16 116/85 97 03/23/17 01:00 63 63 18 134/81 97 03/23/17 00:45 60 60 18 121/79 96 03/23/17 00:40 56 03/23/17 00:35 58 03/23/17 00:30 73 03/23/17 00:00 61 18 136/87 96 03/22/17 23:49 97.1 F L 03/22/17 23:00 74 74 18 134/92 96 03/22/17 22:30 73 17 128/89 96 03/22/17 22:15 73 03/22/17 21:45 77 77 18 130/92 95 03/22/17 21:15 78 78 18 125/88 96 03/22/17 21:00 74 77 18 131/79 92 03/22/17 20:45 78 75 20 138/95 90 03/22/17 20:33 96.6 F L 83 18 135/93 90 03/22/17 20:30 77 77 03/22/17 18:10 68 18 159/95 98 03/22/17 17:56 97.1 F L 64 18 159/95 98 Intake and Output 03/22/17 03/23/17 03/23/17 23:59 07:59 15:59 Intake Total 0 / 0 60 / 60 Output Total 600 / 600 250 / 250 Balance -600 / -600 -190 / -190 Intake: IV Fluids 60 / 60 Aggrastat 5 MG/100 ML 5 mg In 60 / 60 100 ml @ 9.5 mls/hr IV ONCE REX Rx#:[id number] Oral 0 / 0 0 / 0 Output: Urine 600 / 600 250 / 250 Other: Weight 52.163 kg General: Conversant, No Apparent Distress HEENT: Atraumatic, Normocephaly, Mucus Membranes Moist Neck: No JVD, Normal carotid pulses Cardiac: Reg Rate and Rhythm, Normal S1 and S2, No Murmur Lungs: Normal Breath Sounds, No Wheeze, Rales, Rhonchi Neuro: Alert and responsive, No focal deficits noted Abdomen: Soft, Non-Tender Skin: Other (right femoral access site healing well. No bleeding, hematoma or ecchymosis noted.) Musculoskeletal: No Chest Wall Tenderness Extremities: No Clubbing, No Cyanosis, No Edema, Normal Pulses Results 03/23/17 02:52 03/23/17 02:52 Lab Results 03/23/17 03/23/17 03/23/17 02:52 02:52 05:27 WBC 15.8 H Hgb 13.8 Hct 41.9 Plt Count 184 Sodium 133 L Potassium 4.0 Chloride 103 Carbon Dioxide 21 BUN 16 Creatinine 0.67 Glucose 107 H Calcium 9.0 Troponin I 29.20 H* Short CBC 03/23/17 03/22/17 Range/Units 02:52 18:00 WBC 15.8 H 11.6 H (4.3-11.1) K/mcL Hgb 13.8 14.6 (11.5-15.4) g/dL Hct 41.9 44.7 (35.3-44.9) % Plt Count 184 210 (140-400) K/mcL Neutrophils # 13.5 H 6.8 (1.6-8.9) K/mcL BMP 03/23/17 03/22/17 Range/Units 02:52 18:00 Sodium 133 L 135 L (136-145) mEq/L Potassium 4.0 3.8 (3.5-4.5) mEq/L Chloride 103 103 (98-109) mEq/L Carbon Dioxide 21 21 (19-29) mEq/L BUN 16 15 (7-20) mg/dL Creatinine 0.67 0.87 (0.57-1.11) mg/dL Glucose 107 H 110 H (70-99) mg/dL Calcium 9.0 9.2 (8.6-10.8) mg/dL Cardiac Enzymes 03/23/17 03/22/17 Range/Units 05:27 18:00 Troponin I 29.20 H* 0.22 H* (0-0.03) ng/mL Active Medications Aspirin (Aspirin) 81 mg PO DAILY [facility] Stop: 09/22/17 09:01 Last Admin: 03/23/17 07:55 Dose: 81 mg Atorvastatin Calcium (Lipitor) 40 mg PO HS [facility] Stop: 09/21/17 21:01 Last Admin: 03/22/17 23:23 Dose: 40 mg Lisinopril (Zestril) 2.5 mg PO DAILY [facility] PRN Reason: Protocol Stop: 09/22/17 09:01 Last Admin: 03/23/17 07:54 Dose: 2.5 mg Metoprolol Tartrate (Lopressor) 12.5 mg PO BID [facility] Stop: 09/22/17 09:01 Morphine Sulfate (Morphine Sulfate) 1 mg IVP Q20MIN PRN PRN Reason: Pain Stop: 09/22/17 05:46 Nicotine (Nicoderm) 21 mg TD DAILY [facility] PRN Reason: Protocol Stop: 09/21/17 22:16 Last Admin: 03/23/17 00:23 Dose: 21 mg Nitroglycerin (Nitroglycerin) 0.4 mg SL Q5MIN PRN PRN Reason: Chest Pain Stop: 09/21/17 22:01 Last Admin: 03/23/17 04:51 Dose: 0.4 mg Ondansetron HCl (Zofran) 4 mg IVP Q6HR PRN; Protocol PRN Reason: Nausea Stop: 09/22/17 05:20 Last Admin: 03/23/17 05:53 Dose: 4 mg Ticagrelor (Brilinta) 90 mg PO BID [facility] Stop: 09/22/17 09:01 Last Admin: 03/23/17 07:54 Dose: 90 mg - Imaging and Cardiology Echo: pending Cardiac cath: report reviewed - EKG Interpretation EKG results cardiology: personally reviewed, other (12 hr tele AVG HR 74, SR, no significant pauses or arrhythmias.) Consult Discharge Plan - Plan Referrals: Rogelio Maharaj MD [Primary Care Provider] -
[2017-03-23] MEDS ORDERED: Nitroglycerin 0.4 MG TAB.SUBL SL PRN (15:30)
--- NOTE | 2017-03-23 16:44 | Electrocardiograph Report ---
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
[2017-03-23] MEDS: Albuterol Neb 1.25 MG/3 ML VIAL IH SCH (19:32)
[2017-03-23] MEDS: *HR* Ticagrelor 90 MG TABLET PO SCH (20:21)
[2017-03-24] MEDS: Albuterol Neb 1.25 MG/3 ML VIAL IH SCH ×3 (00:04→20:30)
[2017-03-24] MEDS: Aspirin 81 MG TAB.CHEW PO SCH (08:55)
[2017-03-24] MEDS: *HR* Ticagrelor 90 MG TABLET PO SCH ×2 (08:55→20:38)
[2017-03-24] MEDS: Nicotine 21 MG PATCH.TD24 TD SCH (08:56)
--- NOTE | 2017-03-24 09:04 | Cardiology Progress Note ---
Date of Encounter: 03/24/17 Time of Encounter: 09:02 Assessment and Plan (1) STEMI (ST elevation myocardial infarction) Current Visit: Yes Status: Acute S/P STEMI 03/22/17 and emergent LHC--severe 3 vessel CAD, EF 50%, successful thrombectomy/PTCA/BMS to SVG-distal RCA. S/P CABG 2/3 patent bypass grafts. Peak troponin 29.20. Right femoral access site healing well--no bleeding, hematoma or ecchymosis noted. Pt reports chest and back soreness--tender on palpation, reports dyspnea. Utilizing 3L O2, previously not on home O2. Check CXR. ASA and Brilinta uninterrupted x 1 month minimum--pt verbalizes understanding. Continue BB, Statin, ACEi. Echo pending. Given ongoing symptoms, will not discharge today. Keep overnight for further monitoring. Qualifiers: Involved coronary artery: unspecified coronary artery Qualified Code(s): I21.3 - ST elevation (STEMI) myocardial infarction of unspecified site (2) CAD (coronary artery disease) Current Visit: Yes Status: Acute As above--ASA, Brilinta, Statin, BB, ACEi. Qualifiers: Coronary Disease-Associated Artery/Lesion type: unspecified vessel or lesion type [place] vs. transplanted heart: [place] heart Associated angina: angina presence unspecified Qualified Code(s): I25.10 - Atherosclerotic heart disease of [place] coronary artery without angina pectoris (3) Tobacco abuse Current Visit: Yes Status: Acute Smoking cessation counseling given. Nicotine patches make pt jittery, so not given. (4) Wide-complex tachycardia Current Visit: Yes Status: Acute 7 beat run of wide complex tachycardia on telemetry that appears irregular. No recurrence. Pt reports she had A-Fib in the perioperative CABG period, but none since to her knowledge. Continue BB. Continue to monitor telemetry. Will order 48 hour Holter at discharge. (5) Leukocytosis Current Visit: Yes Status: Acute WBC increased from 11.6 to 15.8. Recheck STAT CBC and CXR ordered. Afebrile. Qualifiers: Leukocytosis type: unspecified Qualified Code(s): D72.829 - Elevated white blood cell count, unspecified (6) Dyspnea Current Visit: Yes Status: Acute Reports continued dyspnea, requiring 3L O2. Previously not on home O2. Check CXR. Further recommendations to follow. Qualifiers: Dyspnea type: unspecified Qualified Code(s): R06.00 - Dyspnea, unspecified Discussion w patient/family: The assessment and plan as outlined above was discussed with the patient and/or family members who expressed understanding and agreement. All questions were answered. Thank you for involving us in the care of your patient. Please call with any questions. I will discuss all the above with Dr. Moser and make changes as necessary. Subjective Principal diagnosis: STEMI Interval history: S/P STEMI and successful thrombectomy/PTCA/BMS to SVG-distal RCA 03/22/17. S/P CABG 2/3 patent bypass grafts. Pt reports chest soreness, back and rib soreness , feeling like she has been "hit by a truck". She endorses dyspnea. Objective Vital Signs, Last 4 Hours Temp 03/24/17 08:31 98.1 F Vital Signs Temp Pulse Resp BP Pulse Ox 03/24/17 08:31 98.1 F 03/24/17 04:07 74 03/24/17 04:00 98.5 F 86 15 124/73 92 03/24/17 00:05 15 92 03/23/17 23:52 98.2 F 76 22 132/98 95 03/23/17 23:40 76 03/23/17 20:28 74 03/23/17 20:19 18 95 03/23/17 20:00 98.2 F 74 18 125/82 95 03/23/17 18:21 98.1 F 82 18 134/85 93 03/23/17 17:55 82 03/23/17 16:17 98.0 F 03/23/17 15:09 58 20 134/81 95 03/23/17 14:00 59 16 124/82 95 03/23/17 13:00 72 15 123/77 96 03/23/17 12:00 74 16 122/89 96 03/23/17 11:45 57 03/23/17 11:39 98.2 F 03/23/17 11:00 73 20 129/78 98 03/23/17 10:26 55 12 126/69 98 Intake and Output 03/23/17 03/24/17 03/24/17 23:59 07:59 15:59 Intake Total 240 / 240 Output Total 300 / 300 100 / 100 50 / 50 Balance -60 / -60 -100 / -100 -50 / -50 Intake: Oral 240 / 240 Output: Urine 200 / 200 100 / 100 50 / 50 Catheter 100 / 100 General: Conversant, No Apparent Distress HEENT: Atraumatic, Normocephaly, Mucus Membranes Moist Neck: No JVD, Normal carotid pulses Cardiac: Reg Rate and Rhythm, Normal S1 and S2, No Murmur Lungs: Other (diminished) Neuro: Alert and responsive, No focal deficits noted Abdomen: Soft, Non-Tender Skin: No rashes noted on visualized skin Musculoskeletal: No Chest Wall Tenderness Extremities: No Clubbing, No Cyanosis, No Edema, Normal Pulses Results 03/23/17 02:52 03/23/17 02:52 Active Medications Albuterol Sulfate (Accuneb) 1.25 mg IH TIDR [facility] Stop: 09/22/17 18:01 Last Admin: 03/24/17 00:04 Dose: 1.25 mg Albuterol Sulfate (Albuterol Inhaler) 2 puff IH Q4HR [facility] Stop: 09/22/17 16:01 Last Admin: 03/24/17 04:05 Dose: 2 puff Aspirin (Aspirin) 81 mg PO DAILY [facility] Stop: 09/22/17 09:01 Last Admin: 03/24/17 08:55 Dose: 81 mg Atorvastatin Calcium (Lipitor) 40 mg PO HS [facility] Stop: 09/21/17 21:01 Last Admin: 03/23/17 20:21 Dose: 40 mg Enoxaparin Sodium (Lovenox *Pharmacy Wt Based*) 50 mg SQ Q12HCO [facility] PRN Reason: Protocol Stop: 09/23/17 10:01 Ketorolac Tromethamine (Toradol) 30 mg IVP ONCE ONE Stop: 03/24/17 12:31 Lisinopril (Zestril) 2.5 mg PO DAILY [facility] PRN Reason: Protocol Stop: 09/22/17 09:01 Last Admin: 03/24/17 08:55 Dose: 2.5 mg Metoprolol Tartrate (Lopressor) 12.5 mg PO BID [facility] Stop: 09/22/17 09:01 Last Admin: 03/24/17 08:55 Dose: 12.5 mg Morphine Sulfate (Morphine Sulfate) 1 mg IVP Q20MIN PRN PRN Reason: Pain Stop: 09/22/17 05:46 Nicotine (Nicoderm) 21 mg TD DAILY [facility] PRN Reason: Protocol Stop: 09/21/17 22:16 Last Admin: 03/24/17 08:56 Dose: 21 mg Nitroglycerin (Nitroglycerin) 0.4 mg SL Q5MIN PRN PRN Reason: Chest Pain Stop: 09/21/17 22:01 Omeprazole (Prilosec) 40 mg PO DAILY [facility] PRN Reason: Protocol Stop: 09/23/17 09:31 Ondansetron HCl (Zofran) 4 mg IVP Q6HR PRN; Protocol PRN Reason: Nausea Stop: 09/22/17 05:20 Ticagrelor (Brilinta) 90 mg PO BID [facility] Stop: 09/22/17 09:01 Last Admin: 03/24/17 08:55 Dose: 90 mg Tiotropium [place] (Spiriva) 18 mcg IH DAILY [facility] Stop: 09/23/17 09:01 - Imaging and Cardiology Echo: pending Cardiac cath: report reviewed - EKG Interpretation EKG results cardiology: other (12 hr tele AVG HR 70, 7 beat run of wide complex tachycardia that appears irregular) Consult Discharge Plan - Plan Referrals: Rogelio Maharaj MD [Primary Care Provider] -
[2017-03-24 09:23] LABS: Basophils % 0.1 %; Eosinophils % 0.2 %; Hematocrit 41.4 % (35.3-44.9); Hemoglobin 13.7 g/dL (11.5-15.4); Immature Granulocytes % 0.6 % (0-4); Lymphocytes # 1.4 K/mcL (0.6-4.6); Lymphocytes % 7.4 %; Mean Corpuscular HGB Conc 33.1 g/dL (31.6-35.5); Mean Corpuscular Hemoglobin 30.1 pg (28.0-33.3); Monocytes % 5.5 %; Neutrophils # 15.8 K/mcL (1.6-8.9); Platelet Count 176 K/mcL (140-400); Red Blood Count 4.55 M/mcL (3.82-4.97); Red Cell Distribution Width 14.6 % (11.5-14.5); Segmented Neutrophils % 86.2 %
[2017-03-24 09:35] LABS: BUN/Creatinine Ratio 19 (6-26); Blood Urea Nitrogen 13 mg/dL (7-20); Calcium 9.1 mg/dL (8.6-10.8); Carbon Dioxide 21 mEq/L (19-29); Chloride 102 mEq/L (98-109); Glucose 155 mg/dL (70-99); Osmolality,Calculated 283 (280-300); Potassium 3.5 mEq/L (3.5-4.5); Sodium 135 mEq/L (136-145); eGFR For African Americans > 60 (> 60); eGFR For Non-African Americans > 60 (> 60)
[2017-03-24] MEDS ORDERED: *HR* Enoxaparin 60 MG/0.6 ML SYRINGE SQ SCH (10:00)
[2017-03-24] MEDS ORDERED: Azithromycin 500 MG in D5% in Water 250 ML IVPB SCH (10:00)
[2017-03-24] MEDS: Tiotropium 18 MCG inhalation IH SCH (11:10)
[2017-03-24] MEDS ORDERED: Ketorolac 30 MG/ML VIAL IVP ONE (12:30)
[2017-03-25] MEDS: Albuterol Neb 1.25 MG/3 ML VIAL IH SCH ×2 (03:01→09:46)
[2017-03-25] MEDS ORDERED: *HR* Enoxaparin 40 MG/0.4 ML SYRINGE SQ SCH ×2 (06:00)
--- NOTE | 2017-03-25 06:02 | Electrocardiograph Report ---
[address] [place] [id number] Test Date: 2017-03-23 Pat Name: Jacqueline Thornton Department: 109 Room: 06 Gender: F Transfusion Nurse: : [id number] Requested By: Kermit Lindsay Order Number: [id number] Reading MD: Kwasi Moser MD Measurements Intervals [place] Rate: 55 P: 65 IA: 155 QRS: -13 QRSD: 111 T: 65 QT: 487 QTc: 476 Interpretive Statements SINUS BRADYCARDIA INFERIOR MYOCARDIAL INFARCTION, PROBABLY RECENT ACUTE SD Electronically Signed On 03-25-2017 6:01:00 EST by Kwasi Moser MD
[2017-03-25] MEDS: Aspirin 81 MG TAB.CHEW PO SCH (07:47)
[2017-03-25] MEDS: *HR* Ticagrelor 90 MG TABLET PO SCH (07:48)
[2017-03-25] MEDS: Nicotine 21 MG PATCH.TD24 TD SCH (07:48)
[2017-03-25 07:57] VITALS: BP 97/69
[2017-03-25 09:00] LABS: Basophils % 0.2 %; Eosinophils % 0.3 %; Hematocrit 39.5 % (35.3-44.9); Immature Granulocytes % 0.6 % (0-4); Lymphocytes # 1.3 K/mcL (0.6-4.6); Lymphocytes % 8.1 %; Mean Corpuscular HGB Conc 32.9 g/dL (31.6-35.5); Mean Corpuscular Hemoglobin 29.8 pg (28.0-33.3); Mean Corpuscular Volume 90.6 fL (83.0-100.0); Mean Platelet Volume 11.5 fL (9.4-12.4); Monocytes # 0.9 K/mcL (0.0-1.3); Monocytes % 5.6 %; Neutrophils # 13.7 K/mcL (1.6-8.9); Platelet Count 175 K/mcL (140-400); Red Blood Count 4.36 M/mcL (3.82-4.97); Red Cell Distribution Width 14.5 % (11.5-14.5); Segmented Neutrophils % 85.2 %
[2017-03-25 09:06] LABS: BUN/Creatinine Ratio 20 (6-26); Blood Urea Nitrogen 13 mg/dL (7-20); Calcium 8.9 mg/dL (8.6-10.8); Carbon Dioxide 21 mEq/L (19-29); Chloride 102 mEq/L (98-109); Glucose 119 mg/dL (70-99); Osmolality,Calculated 275 (280-300); Potassium 3.1 mEq/L (3.5-4.5); Sodium 132 mEq/L (136-145); eGFR For African Americans > 60 (> 60); eGFR For Non-African Americans > 60 (> 60)
--- NOTE | 2017-03-25 09:43 | Discharge Summary ---
Date of Encounter: 03/25/17 Time of Encounter: 09:43 - Discharge Diagnosis (1) STEMI (ST elevation myocardial infarction) Priority: Primary Status: Acute Qualifiers: Involved coronary artery: unspecified coronary artery Qualified Code(s): I21.3 - ST elevation (STEMI) myocardial infarction of unspecified site (2) CAD (coronary artery disease) Priority: Primary Status: Acute Qualifiers: Coronary Disease-Associated Artery/Lesion type: unspecified vessel or lesion type [place] vs. transplanted heart: [place] heart Associated angina: angina presence unspecified Qualified Code(s): I25.10 - Atherosclerotic heart disease of [place] coronary artery without angina pectoris (3) Tobacco abuse Priority: Secondary Status: Acute (4) Wide-complex tachycardia Priority: Secondary Status: Acute (5) Pneumonia Priority: Secondary Status: Acute Qualifiers: Pneumonia type: due to unspecified organism Laterality: unspecified laterality Lung location: unspecified part of lung Qualified Code(s): J18.9 - Pneumonia, unspecified organism - Discharge Medications Prescriptions: Nitroglycerin 0.4 mg SL Q5MIN PRN #30 tab.subl PRN Reason: Chest Pain Aspirin 81 mg PO DAILY #30 tab.chew Atorvastatin [Lipitor] 40 mg PO HS #30 tablet Azithromycin [Zithromax] 500 mg PO DAILY #3 tablet Lisinopril [Zestril] 2.5 mg PO DAILY #30 tablet Metoprolol [Lopressor] 12.5 mg PO BID #30 tablet Omeprazole [PriLOSEC] 20 mg PO DAILY #30 capsule. Ticagreljose [Brilinta] 90 mg PO BID #60 tablet Home Medications: Albuterol Neb [AccuNeb] 1.25 mg IH TID 05/07/15 [History] Albuterol Sulfate [Albuterol Inhaler] 2 puff IH Q4HR 2 Days hfa.aer.ad [Rx] Tiotropium [Spiriva] 1 puff IH DAILY 03/23/17 [History] Aspirin 81 mg PO DAILY #30 tab.chew 03/25/17 [Rx] Atorvastatin [Lipitor] 40 mg PO HS #30 tablet 03/25/17 [Rx] Azithromycin [Zithromax] 500 mg PO DAILY #3 tablet 03/25/17 [Rx] Lisinopril [Zestril] 2.5 mg PO DAILY #30 tablet 03/25/17 [Rx] Metoprolol [Lopressor] 12.5 mg PO BID #30 tablet 03/25/17 [Rx] Nitroglycerin 0.4 mg SL Q5MIN PRN #30 tab.subl 03/25/17 [Rx] Omeprazole [PriLOSEC] 20 mg PO DAILY #30 capsule.dr 03/25/17 [Rx] Ticagrelor [Brilinta] 90 mg PO BID #60 tablet 03/25/17 [Rx] Allergies/Adverse Reactions: 3 Allergy/AdvReac Type Severity Reaction Status Date / Time codeine Allergy See Verified 03/23/17 09:34 Comments levofloxacin [From Levaquin] Allergy Rash Verified 03/23/17 09:34 morphine Allergy See Verified 03/23/17 09:34 Comments Procedures/tests Complete & Pending: Procedures Performed prior 72 hours Category Date Time Status ECG 12 lead ECG [ECG] Routine Y 03/22/17 20:25 Ordered ECG 12 lead ECG [ECG] Routine Y 03/23/17 07:00 Completed ECG 12 lead ECG [ECG] Stat Y 03/22/17 20:25 Ordered EV echocardiogram Routine Y 03/22/17 20:25 Completed Date of admission: 03/22/17 18:28 Primary care physician: Rogelio Maahraj MD Consults: 03/22/17 20:25 Consult to Cardiac Rehabilitation-Phase1 [CONS] Routine Comment: Reason for Consult: AMI Call Completed: Yes Consult to Nurse Navigator [CONS] Routine Comment: Discharging clinician: Luis Winston Anticipated date of discharge: 03/25/17 - Patient Status Disposition: Home, Self-Care Condition: Fair Functional capacity at discharge: independent ambulation Overall status at discharge: patient is progressing back to baseline - Discharge Instructions Follow Up With: Rogelio Maharaj MD [Primary Care Provider] - Forms: ED Satisfaction Letter Additional Instructions: RISK FACTORS: STOP SMOKING: If you smoke, STOP. Smoking or tobacco use significantly increases your risk of heart disease because nicotine causes the arteries to narrow or constrict. It also causes fats to stick to the artery. Your chances of having a heart attack are greatly increased if you continue to smoke. For more information, call the education line for smoking cessation 3-732-NJYYJMW EAT A LOW FAT/CHOLESTEROL/SODIUM DIET: This diet may help reduce your chances of having a heart attack. LIFTING: Avoid lifting anything more than 10 pounds for 5-7 days Prior to straining, laughing, sneezing and/or coughing, apply manual pressure directly over insertion site. ACTIVITY: You may walk or climb stairs as tolerated You can resume sexual activity as tolerated In general, you are encouraged to engage in a minimum of 30 minutes or more of moderate intensity physical activity, such as brisk walking, daily or at least 3 -4 times weekly BATHING Do not submerge the site into water (bath tub, hot tub, swimming pool) for 1 week. This can be a source for infection into the blood stream. You may shower after 24 hours SITE CARE: After 24 hours, you may remove the dressing and leave the site open to air. Keep the site clean and dry. Clean gently and pat dry. You can expect bruising and tenderness that gradually resolve within a week or two. Return to work as instructed per your physician Resume driving as instructed per physician Keep all scheduled follow up appointments Resume medications as instructed IMPORTANT: If prescribed a Platelet Aggregation Inhibitor such as, Plavix, Brilinta or Effient: Duration of therapy is minimum one year These medications are often used in combination with Aspirin in prevention of future heart attacks Never discontinue unless consult with your Assistant Credit Manager STROKE (CVA) Risk factors for a stroke are: Age, cigarette smoking, diabetes, excessive alcohol consumption, family history, high blood pressure, overweight, physical inactivity, prior stroke, heart attack, diagnosis of carotid artery stenosis or other artery disease. Warning signs: Sudden numbness or weakness of the face, arm or leg; especially on one side of the body, sudden confusion, trouble speaking or understanding, sudden trouble seeing in one or both eyes, sudden trouble walking, dizziness, loss of balance or coordination, sudden severe headache with no cause. Call 911 or go to the Emergency Room. CONGESTIVE HEART FAILURE: If you have been diagnosed with Congestive Heart Failure (CHF) and your symptoms return, make an appointment with your physician Weigh yourself daily. Notify your physician if you have a weight gain of two or more pounds in one day or five or more pounds in one week. If you experience any difficulty breathing, please call 911 BLEEDING: Although the risk of bleeding is minimal, it can happen. If you have any bleeding from the site, apply firm pressure above the puncture site for 10-15 minutes. If the bleeding does not stop, continue manual pressure and call 911 Contact your physician if: You develop a fever greater than 101 degrees Fahrenheit Your site becomes reddened or has any drainage You have an increase in pain or burning at the site or if a large knot forms at the site. If you experience chest pain, shortness of breath, dizziness, or extreme tiredness, stop the activity and rest. Please notify your physicians office if you experience any of these symptoms and they are not relieved by rest please call 911! - Diet and Activity Activity: increase activity as tolerated - Hospital Course Hospital course: Ms. Thornton is a 66 year old female with hx of CAD and CABG that presented as a STEMI and underwent emergent LHC--severe 3 vessel CAD, EF 50%, successful thrombectomy/PTCA/BMS to SVG-distal RCA. S/P CABG 2/3 patent bypass grafts. Peak troponin 29.20. Right femoral access site healing well--no bleeding , hematoma or ecchymosis noted. ASA and Brilinta uninterrupted x 1 month minimum --pt verbalizes understanding. Free Brilinta card given. Continue BB, Statin, ACEi. Pt reported dyspnea, chest/rib/back soreness. CXR obtained yesterday-- Stable appearance to multilevel chronic compression deformities to the mid to lower thoracic spine from prior CT chest 12/08/2014. Possible atypical PNA. WBC uptrended to 18.3. Started IV Azithromycin to cover PNA, now transitioned to PO 500mg daily for total of 5 days. Pt has been afebrile. She received IV dose of Toradol for her complaints of back/rib/chest soreness with improvement. Post STEMI EKG is improved. Echo LVEF 50%, Mild segmental left ventricular systolic dysfunction, Mild left ventricular diastolic dysfunction, No significant valvular dysfunction. Reports feeling ready to be discharged today. She had a 7 beat run of wide complex tachycardia 2 days ago--appeared irregular. Reports she had A-Fib in the perioperative CABG period years ago. Ordering 48 hour Holter at discharge for further evaluation. K 3.1 today--replacing. Was on O2, weaned off and ambulated without issue. Pt does not qualify for home O2. Pt being discharged home in stable condition. Will coordinate follow-up in week. In regards to smoking cessation, counseling given, but she declines nicotine patches as they make her jittery. Time spent discussing smoking cessation with patient: 3 to 10 minutes - Time Spent with Patient Total time spent providing and/or coordinating discharge services: Less than 30 minutes Physical Examination Vital Signs, Last 4 Hours Temp Pulse Resp BP Pulse Ox 03/25/17 07:52 98.4 F 78 16 97/69 94 03/25/17 07:33 98.4 F 03/25/17 07:00 78 Vital Signs Temp Pulse Resp BP Pulse Ox 03/25/17 09:48 16 94 03/25/17 07:52 98.4 F 78 16 97/69 94 03/25/17 07:33 98.4 F 03/25/17 07:00 78 03/25/17 03:41 98.6 F 03/25/17 03:27 71 16 116/71 95 03/25/17 00:00 68 18 116/74 94 03/24/17 23:40 16 94 03/24/17 23:34 99.4 F 03/24/17 20:30 12 94 03/24/17 20:26 98.2 F 71 14 102/71 96 03/24/17 17:49 79 03/24/17 16:52 68 20 102/73 95 03/24/17 15:15 98.2 F 03/24/17 14:00 75 03/24/17 12:05 97.8 F 80 20 108/81 93 03/24/17 11:09 18 95 Intake and Output 03/24/17 03/25/17 03/25/17 23:59 07:59 15:59 Intake Total 360 / 360 Output Total 175 / 175 100 / 100 Balance -175 / -175 260 / 260 Intake: Oral 360 / 360 Output: Urine 175 / 175 100 / 100 Other: Meal Breakfast Percent of Meal Consumed 45% Weight 52.675 kg Patient Weight 03/25/17 23:59 Weight 52.675 kg General: Conversant, No Apparent Distress HEENT: Atraumatic, Normocephaly, Mucus Membranes Moist Neck: No JVD, Normal carotid pulses Cardiac: Reg Rate and Rhythm, Normal S1 and S2, No Murmur Lungs: Other (diminished) Neuro: Alert and responsive Abdomen: Soft, Non-Tender Skin: No rashes noted on visualized skin Musculoskeletal: No Chest Wall Tenderness Extremities: No Clubbing, No Cyanosis, No Edema, Normal Pulses - VTE Reasons for not Prescribing Prophylaxis: Not indicated-Anticoagulated or INR therapeutic
[2017-03-25] MEDS: Tiotropium 18 MCG inhalation IH SCH (09:47)
[2017-03-25] MEDS ORDERED: Azithromycin 250 MG TABLET PO SCH (10:00)
[2017-03-25 17:53] LABS: CK-BB (CK isoenzymes) 0 % (0-0); CK-MB (CK isoenzymes) 13 % (0-4); CK-MM (CK-isoenzymes) 87 % (96-100)
[2017-03-26 07:16] LABS: CK Total (Ck Isoenzymes) 1377 U/L (20-180)
== END 2017-03-25 13:18 | disposition home or self-care (01) | DRG 248 ==
LOC: EMEROO 17:53 → ICNU 18:15
PROVIDERS: ADMIT Nurse Practitioner Family; ATTEND Internal Medicine Cardiovascular Disease